=== PATIENT | male | born 1995 | race Caucasian/White ===

== ENCOUNTER 2016-10-25 23:34 | Emergency (ER) | payer OTHER ==
[~2016-10-25] VITALS: Ht 174 cm; Wt 73.8 kg
[2016-10-25 23:54] VITALS: TEMP 36.6; Ht 174 cm; Wt 73.8 kg
[2016-10-26] MEDS ORDERED: IBUPROFEN 600 MG TAB PO STA (00:05)
[2016-10-26] MEDS ORDERED: MULT-506 PO (00:30)
--- NOTE | 2016-10-26 01:15 | EMERGENCY ROOM VISIT NOTE ---
ED Visit Note First contact with patient: 23:59 Chief Complaint: "Cut left finger". History of Present Illness: This patient is a 21-year-old male who presents to the Emergency Department via private vehicle for evaluation of their left first and second digit laceration. Patient sustained the laceration while attempting to cut a frozen hamburger. They report a moderate amount of bleeding initially. They deny any numbness or tingling into the distal extremity. They report no decreased range of motion of the affected digit. They have tried nothing for the pain.. Patient rates his current discomfort as a 3/10. Patient's Tetanus status is believed to be currently up-to-date. Medications: As noted below Allergies: None PMH: No pertinent SHx: Patient is from [place], and is living locally is a [employer] student. ROS: All pertinent positive and negative review of systems are appropriately documented in the History of Present Illness. Physical Exam: VITAL SIGNS - Vital signs and nursing notes were reviewed. Stable. GENERAL -21-year-old male appearing his stated age who is in no acute distress. Communicates well with provider and answers questions appropriately. SKIN - There is a 0.5 cm long laceration noted on the lateral aspect of the right second digit near the fingernail as well as a 1cm or laceration noted in a V-shaped on the medial aspect of the distal right thumb. The edges gape apart with traction. No foreign bodies appreciated. Upon further examination there are no deep structures including vessel, tendon, or bony structures appreciated. There is no active bleeding noted. MUSCULOSKELETAL - Laceration as described above. +5/5 strength appreciated of the affected digit. Full range of motion of the affected digit. NEUROLOGIC - Spinothalamic tract was found to be intact with ability to discriminate sharp versus dull sensation. No sensory defects of the dorsal column were appreciated utilizing light touch for evaluation. VASCULAR - Capillary refill was brisk. Radiograph as read by myself reveals no acute fracture or dislocation. Small punctate density noted on the lateral view at the location of the second digit. ED Course: Patient was seen and evaluated by myself. Risks and benefits of performing primary wound closure versus no repair were discussed with the patient who verbalizes understanding. Verbal consent was obtained prior to performing the procedure. Radiograph was obtained. Correlate clinically, the x-ray does not show any break in the bone, and the small punctate density I suspect is likely some dried blood mixed in with some skin tissue that has extravasated from the wound. Benefits versus risk of suturing versus Dermabond was discussed with the patient. The wounds do not gape apart at rest, and are quite superficial. The cut style from the knife is causing some continued bleeding. I believe that at this time suturing is not going to provide anymore benefit over Dermabond. If anything, I believe that suturing will cause more problems. The wound was cleansed and prepped in the typical sterile fashion utilizing normal saline and Betadine. The wound was sterilely draped. Once proper anesthetization was established, the wound was further examined and demonstrated no deep involvement. The wound was copiously irrigated with normal saline and Betadine. The wound was closed using Dermabond with the wound edges being well approximated. The wounds were oozing a small amount of blood, therefore Dermabond did have a reddish hue. A few layers were applied, with good fit. Patient tolerated the procedure well. No complications were met. Patient educated on worrisome symptoms for return visit to the Emergency Department. Patient discharged to home in good condition. In the evaluation and treatment of this patient, the following differential diagnoses were considered: Finger Fracture, Finger Dislocation, Finger Sprain, Finger Contusion, [place] Finger, or Mallet Finger. Current/Historical Medications Scheduled Multivitamin (Multivitamin), 1 TAB PO DAILY Allergies Coded Allergies: No Known Allergies (Unverified , 10/26/16) Vital Signs Date Time Temp Pulse Resp B/P (MAP) Pulse Ox O2 Delivery O2 Flow Rate FiO2 10/26/16 01:22 71 18 132/71 98 10/25/16 23:54 36.6 71 18 136/75 94 Room Air Medications Administered Medications (Trade) Dose Ordered Sig/Rowan Route Start Time Stop Time Status Last Admin Dose Admin Ibuprofen (Motrin Tab) 600 mg NOW STAT PO 10/26/16 00:05 10/26/16 00:07 DC 10/26/16 00:27 600 MG Departure Information Impression Primary Impression: Laceration Dispostion Home / Self-Care Condition GOOD Referrals [facility] (PCP) Patient Instructions [facility] Additional Instructions Discharge Instructions: You have received dermabond on your fingers. This will dissolve over the next few weeks. Look for signs of infection of the wound including: increased pain, swelling, foul discharge, streaking, or increased temperature. If any of these are noticed you should return to the Emergency Department for further assessment and treatment. As with any laceration you may have received nerve damage to the surrounding tissues. This damage may or may not be permanent. You should keep the area covered with sunscreen for the first 6 months to 1 year when at risk for exposure to help minimize scarring. You can also use scar reducing creams or Vitamin E oil to help minimize scarring. For pain control, you can use the following [id number] medicines (if >12 yo): - Regular strength (325mg/tab) Tylenol (acetaminophen) 2 tabs every 4-6 hours as needed. Do not exceed 12 tablets in a 24 hour period. Avoid taking more than 3 grams (3000 mg) of Tylenol per day. This includes any other sources of acetaminophen you may take on a regular basis. - Regular strength (200 mg/tab) Advil (ibuprofen) 1-2 tabs every 4-6 hours as needed. Do not exceed a dose of 3200 mg per day. Return to the emergency department if your symptoms worsen despite treatment course outlined above.
[2016-10-26 01:22] VITALS: BP 132/71; PULSE 71; O2SAT 98
--- NOTE | 2016-10-26 06:40 | DIAGNOSTIC IMAGING REPORT ---
LEFT FINGER(S) MIN 2 VIEWS ROUTINE HISTORY: 21 years-old Male Left index finger pain s/p laceration acute pain of the left index finger status post laceration. COMPARISON: None available TECHNIQUE: 3 views of the left second digit FINDINGS: There is skin irregularity and soft tissue thickening involving the lateral aspect of the distal second digit compatible with patient's history of laceration. There is no associated acute fracture, dislocation or significant degenerative changes. No opaque foreign body. IMPRESSION: Laceration of the lateral distal second digit without fracture or opaque foreign body. The above report was generated using voice recognition software. It may contain grammatical, syntax or spelling errors. Electronically signed by: Nick Ozuna M.D. 10/26/2016 6:38 AM Dictated Date/Time: 10/26/2016 6:37 AM
== END 2016-10-26 01:24 | disposition home or self-care (01) ==
LOC: C.EDB 23:36
DX: S61.210A Laceration without foreign body of right index finger without damage to nail, initial encounter (principal); S61.011A Laceration without foreign body of right thumb without damage to nail, initial encounter; W26.0XXA Contact with knife, initial encounter; Y92.9 Unspecified place or not applicable